=== PATIENT | female | born 1980 | race Hispanic/Latino ===

== ENCOUNTER 2016-11-21 16:29 | Emergency (ER) | payer BC ==
[~2016-11-21] VITALS: Ht 152.4 cm; Wt 65.4 kg
[~2016-11-21 16:29] MED LIST: BACTRIM,SEPT1 TABLET PO; BENTYL20 MG PO; LOMOTIL TABLET1 EACH PO; Motrin PO; PROMETHAZINE HC25 M1 PO; PYRIDIUM100 MG PO; Percocet 5/325,Endoc PO
[2016-11-21] MEDS ORDERED: FLEXERIL10 MG PO (17:11)
[2016-11-21] MEDS ORDERED: MOTRIN600 MG PO (17:11)
[2016-11-21 17:26] VITALS: BP 140/98
== END 2016-11-21 17:33 | disposition home or self-care (01) ==
LOC: EME 16:29
DX: S29.011A Strain of muscle and tendon of front wall of thorax, initial encounter (principal); X50.0XXA Overexertion from strenuous movement or load, initial encounter
CPT/HCPCS: 93005; 99281; 99283